=== PATIENT | female | born 1945 | race Caucasian/White ===

== ENCOUNTER 2017-12-12 13:08 | Outpatient (CLI) | payer MEDICARE ==
[2017-12-12 14:38] LABS: Anion Gap 13 mmol/L (10-20); BUN (Urea Nitrogen) 13 mg/dL (9.8-20.1); Calc. Creatinine Clearance 0 mL/min (70-130); Calcium 9.6 mg/dL (7.8-10.44); Carbon Dioxide 30 mmol/L (23-31); Chloride 103 mmol/L (98-107); Estimated GFR-MDRD 72; Glucose 113 mg/dL (83-110); Potassium 3.9 mmol/L (3.5-5.1); Sodium 142 mmol/L (136-145)
--- NOTE | 2017-12-14 00:50 | EKG ---
Test Reason : Blood Pressure : / mmHG Vent. Rate : 069 BPM Atrial Rate : 069 BPM P-R Int : 156 ms QRS Dur : 102 ms QT Int : 394 ms P-R-T Axes : 003 025 042 degrees QTc Int : 422 ms Sinus rhythm with occasional Premature ventricular complexes Low voltage QRS Incomplete right bundle branch block Cannot rule out Anterior infarct (cited on or before 06-MAY-2009) Abnormal ECG When compared with ECG of 06-MAY-2009 13:17, Premature ventricular complexes are now Present Confirmed by KRIS DARBY, SJeromy ([id number]) on 12/14/2017 12:50:12 AM Referred By: LUCIA Confirmed By:DR. Merly PONCE MD
== END 2017-12-12 13:09 | disposition home or self-care (01) ==
LOC: LABBT 13:08
PROVIDERS: ATTEND Neurological Surgery
DX: Z01.818 Encounter for other preprocedural examination (principal); M54.16 Radiculopathy, lumbar region
CPT/HCPCS: 80048; 93005; 93010

== ENCOUNTER 2017-12-18 08:55 | Day surgery (SDC) | payer MEDICARE ==
[2017-12-12 13:25] VITALS: BMI 34.9
--- NOTE | 2017-12-18 00:10 | HP ---
HISTORY OF PRESENT ILLNESS: Ms. Mckeon is a very pleasant 72-year-old woman who presents for evalu ation of 2 months' worth of severe right lower extremity L5 pains with associated numbness and tingli ng. She feels at this time that she is also weak in her right lower extremity, but does not have any true motor weakness discernible on exam. She has treated this with physical therapy and medications , which have not really helped much or made a difference for her and is ready to discuss other option s. She has an MRI at [facility] that reveals large superiorly migrated and sequestere d disk fragment to the right at L4-L5, which fits her symptoms well. PAST MEDICAL HISTORY: Significant for hypertension, obesity, essential tremor, insomnia. CURRENT MEDICATIONS: Losartan/hydrochlorothiazide, Caltrate, vitamin B12, and zolpidem. ALLERGIES: No known drug allergies. PAST SURGICAL HISTORY: Rotator cuff repair on the right, cholecystectomy, basal cell carcinoma resec tion on the right shoulder, and noncancerous nodule resection from the left breast. PHYSICAL EXAMINATION: NEUROLOGIC: The patient is alert and oriented x3. Gait is mildly antalgic. Lower extremity motor e xam is normal in all lower extremity motor movements. She has a negative straight leg raise bilatera lly. Reflexes are equal and present bilaterally at the patella. ASSESSMENT: Lumbar radiculopathy with herniated disk. PLAN: Discussed the case with Dr. Santana who met with the patient, reviewed imaging with me, and advo cated for a right L4 diskectomy. He explained to the patient the risks, benefits, and alternatives t o the procedure. The patient expressed understanding and would like to move forward with surgery as discussed. I do believe the patient is mentally competent and capable of making medical decisions fo r herself. We will move forward with surgery as planned. Levy Muro PA-C dictating for Dr. Santana.
[2017-12-18] MEDS ORDERED: CEFAZOLIN/Water 2 GM/20 ML SYRINGE ONE ×2 (09:03→14:52)
[2017-12-18] MEDS ORDERED: Thrombin 5000 UNITS/5 ML VIAL ONE (11:14)
[2017-12-18] MEDS ORDERED: Fentanyl 250 MCG/5 ML VIAL ONE (11:20)
[2017-12-18] MEDS ORDERED: Bupivacaine 0.25% HCL 30 ML VIAL ONE (11:51)
[2017-12-18] MEDS ORDERED: Bupivacaine PF 0.5% 30 ML VIAL ONE (11:51)
--- NOTE | 2017-12-18 13:02 | OP ---
DATE OF PROCEDURE: 12/18/2017 SURGEON: Jacob Santana M.D. COUNTER MAKER: None. INDICATION: Pain. DIAGNOSIS: Lumbar radiculopathy. PROCEDURE PERFORMED: Right L4 discectomy. ANESTHESIA: General. TECHNIQUE: The patient was brought into the operating room and placed under general anesthesia. She was flipped from a supine to a prone position on the operating room table. A linear incision was pl anned over the L4 segment. After prepping and draping and after appropriate operative pause, the inc ision was created. The soft tissues were swept right of midline. Self-retaining retractors were freddie robin in the wound for optimal exposure. After confirming the appropriate levels with C-arm fluoroscop y, hemilaminectomy was performed along the entire aspect of L4 on the right. There was a superiorly extruded disk fragment, which was identified just medially to the exiting L4 nerve root. This was ca refully removed until the lateral recesses and the exiting and descending nerve roots were well decom pressed. The wound was irrigated. Hemostasis was maintained throughout. The wound was then closed in anatomic layers and a pressure dressing was applied. There were no known procedural complications .
[2017-12-18] MEDS ORDERED: Acetaminophen/Codeine 30-300mg Tablet ONE (14:53)
[2017-12-18] MEDS ORDERED: Dexamethasone 20 MG/5 ML VIAL ONE (15:54)
[2017-12-18] MEDS ORDERED: Glycopyrrolate 0.2 MG/ML 5 ML SYRINGE ONE (15:54)
[2017-12-18] MEDS ORDERED: Ondansetron HCl/PF 4 MG/2 ML Vial ONE (15:54)
[2017-12-18] MEDS ORDERED: Propofol 200 MG/20 ML VIAL ONE (15:54)
[2017-12-18] MEDS ORDERED: Lidocaine 1% PF 5 ML VIAL ONE (15:54)
== END 2017-12-18 15:20 | disposition home or self-care (01) ==
LOC: SDC 08:55
PROVIDERS: ATTEND Neurological Surgery
PROC: 0SB20ZZ Excision of Lumbar Vertebral Disc, Open Approach (ICD-10-PCS; principal; 2017-12-18)
DX: M54.16 Radiculopathy, lumbar region (principal); M51.26 Other intervertebral disc displacement, lumbar region; I10 Essential (primary) hypertension
CPT/HCPCS: 76001; J0131; J1100; J2001; J2405; J2704; J3010; S0020

== ENCOUNTER 2018-07-09 09:52 | Outpatient (CLI) | payer MEDICARE ==
--- NOTE | 2018-07-09 12:49 | CT ---
CT OF THE LUMBAR SPINE: DATE: 07/09/18. COMPARISON: None. HISTORY: Low back pain radiating down the right leg, history of diskectomy. TECHNIQUE: Serial axial CT imaging is obtained at 3 mm intervals from the lower thoracic spine through the infer ior aspect of the sacrum without contrast. Coronal and sagittal reformatted imaging obtained. FINDINGS: Evaluation for central canal and/or neural foraminal stenosis is limited on routine CT. Cholecystectomy clips are present. Five lumbar-type vertebral bodies are present. There is anterolisthesis of L4 on L5 measuring 6 mm. T12-L1: There is no osseous cause of significant central canal or neural foraminal stenosis. Mild b ilateral facet hypertrophy. Mild anterior osteophyte formation. L1-2: There is bilateral facet hypertrophy. There is disk space narrowing and disk bulge noted with a left foraminal disk protrusion. Mild left lateral recess stenosis suspected. Moderate left neura l foraminal stenosis and mild right neural foraminal stenosis suspected. L2-3: There is disk space narrowing with vacuum disk formation and probable mild disk bulge with at least mild central canal stenosis. [id number] facet hypertrophy, left greater than right, with mild right and moderate left neural foraminal stenosis. L3-4: Bilateral facet hypertrophy, left greater than right. Disk space narrowing and vacuum disk fo rmation noted. Mild central canal stenosis. Moderate left and mild right neural foraminal stenosis suspected. L4-5: Disk space narrowing with vacuum disk formation and mild disk bulge. Unilateral pars defect o n the right. Moderate to severe right neural foraminal stenosis suspected. Probable mild central ca nal stenosis and left neural foraminal stenosis. Evidence of left-sided hemilaminectomy noted at L4. L5-S1: Mild disk space narrowing. Mild bilateral facet hypertrophy with mild bilateral neural des inal stenosis. No acute fracture or dislocation. No worrisome lytic or blastic bone lesion. IMPRESSION: 1. Evidence of prior right-sided hemilaminectomy at L4. Multilevel degenerative change as described above. Unilateral pars defect on the right at L4 noted. 2. Evaluation for central canal and/or neural foraminal stenosis could be best performed via CT myel ogram or lumbar spine MRI. POS: EMILY
--- NOTE | 2018-07-09 13:06 | CT ---
CERVICAL SPINE CT WITHOUT CONTRAST: DATE: 07/09/18. COMPARISON: None. HISTORY: Neck tightness, left greater than right, neck pain. TECHNIQUE: Serial axial CT imaging at 2 mm intervals from skull base through the lung apices without contrast. Coronal and sagittal reformatted imaging obtained. FINDINGS: Evaluation for central canal and/or neural foraminal stenosis is limited on routine CT. The cranioce rvical junction, the occipital condyles, the dens, the C1-2 articulation, and the cervicothoracic arnel ction demonstrate no acute findings. There is moderate degenerative change at the atlantoaxial inter space with interspace narrowing, subchondral sclerosis, and superior osteophyte formation. There is no anterolisthesis or retrolisthesis seen and there is no prevertebral soft tissue swelling. C2-3: No osseous cause of significant central canal or neural foraminal stenosis. C3-4: No osseous cause of significant central canal or neural foraminal stenosis. C4-5: There is right-sided facet and uncovertebral osteophyte formation with extension into the righ t neural foramen and moderate right neural foraminal stenosis. Mild uncovertebral osteophyte formati on on the left with mild extension into the left neural foramen. No significant central canal stenos is. C5-6: Bilateral uncovertebral osteophyte formation, left greater than right, with extension into kathie ateral neural foramina. Probable mild bilateral neural foraminal stenosis. No osseous cause of sign ificant central canal stenosis. C6-7: There is disk space narrowing. There is no osseous cause of significant central canal or neur al foraminal stenosis. C7-T1: No osseous cause of significant central canal or neural foraminal stenosis. No lytic or blastic bone lesion. No acute fracture or evidence of dislocation. Imaged lung apices are grossly unremarkable. There is incompletely assessed atherosclerotic calcification involving the distal common carotid myriam ry bilaterally. IMPRESSION: Multilevel degenerative change noted within the cervical spine. The most significant finding is neur al foraminal stenosis on the right at C4-5 and bilaterally at C5-6. Cervical spine CT myelogram or M RI could be most useful for evaluating underlying central canal and neural foraminal stenosis. POS: EMILY
== END 2018-07-09 09:53 | disposition home or self-care (01) ==
LOC: TBSIIMAG 09:52
PROVIDERS: ATTEND Neurological Surgery
DX: M54.2 Cervicalgia (principal); M47.26 Other spondylosis with radiculopathy, lumbar region; M47.892 Other spondylosis, cervical region; M99.81 Other biomechanical lesions of cervical region; Z98.890 Other specified postprocedural states
CPT/HCPCS: 72125; 72131

== ENCOUNTER 2018-09-10 13:11 | Outpatient (CLI) | payer MEDICARE ==
[2018-09-10 13:58] LABS: Anion Gap 14 mmol/L (10-20); BUN (Urea Nitrogen) 11 mg/dL (9.8-20.1); Calc. Creatinine Clearance 0 mL/min (70-130); Calcium 9.3 mg/dL (7.8-10.44); Carbon Dioxide 28 mmol/L (23-31); Chloride 106 mmol/L (98-107); Estimated GFR-MDRD 72; Glucose 153 mg/dL (83-110); Potassium 4.1 mmol/L (3.5-5.1); Sodium 144 mmol/L (136-145)
--- NOTE | 2018-09-11 09:41 | EKG ---
Test Reason : Blood Pressure : / mmHG Vent. Rate : 069 BPM Atrial Rate : 069 BPM P-R Int : 164 ms QRS Dur : 108 ms QT Int : 426 ms P-R-T Axes : 046 002 042 degrees QTc Int : 456 ms Normal sinus rhythm Low voltage QRS Incomplete right bundle branch block Cannot rule out Anterior infarct (cited on or before 06-MAY-2009) Abnormal ECG When compared with ECG of 12-DEC-2017 13:58, Premature ventricular complexes are no longer Present Confirmed by MENG MEDRANO ([id number]) on 09/11/2018 9:41:39 AM Referred By: LUCIA Confirmed By:MENG MEDRANO
== END 2018-09-10 13:12 | disposition home or self-care (01) ==
LOC: LABBT 13:11
PROVIDERS: ATTEND Neurological Surgery
DX: Z01.818 Encounter for other preprocedural examination (principal); M43.16 Spondylolisthesis, lumbar region
CPT/HCPCS: 80048; 93005; 93010

== ENCOUNTER 2018-09-19 08:20 | Day surgery (SDC) | payer MEDICARE ==
--- NOTE | 2018-09-19 07:07 | HP ---
HISTORY OF PRESENT ILLNESS: Ms. Mckeon is a 73-year-old woman known to us for a very distant lumba r diskectomy at the very beginning of this year who struggles with recurrent pains in the same distri bution which is a right L4 pattern. She has an MRI that shows some mild foraminal stenosis and then now a new CT scan from [facility] that reveals a unilateral right pars defect that could certainly explain the symptoms that she is having. She had injections at this level with Dr. Lanier repeatedly th at did help but her pain just continues to return. She also had . PAST MEDICAL HISTORY: Hypertension, obesity, essential tremor, insomnia. CURRENT MEDICATIONS: Losartan/hydrochlorothiazide, Caltrate, vitamin B12, zolpidem. ALLERGIES: No known drug allergies. PHYSICAL EXAMINATION: The patient is alert and oriented x3. Gait is mildly antalgic. Lower extremi ty motor strength is normal. ASSESSMENT: Lumbar pars defect and radiculopathy. PLAN: Dr. Santana met with the patient, did imaging and indicated for L4-L5 fusion. He explained the patient risks, benefits, and alternatives to the procedure. The patient expressed understanding this as discussed and is fully mentally capable of making medical decisions for herself.
[2018-09-19] MEDS ORDERED: CEFAZOLIN/Water 2 GM/20 ML SYRINGE ONE ×2 (09:20→13:56)
[2018-09-19] MEDS ORDERED: Bupivacaine HCl 0.5%/Epinephrine 1:200,000/PF 30 ml Vial ONE (09:23)
[2018-09-19] MEDS ORDERED: Fentanyl 100 MCG/2 ML VIAL ONE ×3 (09:33→12:21)
[2018-09-19] MEDS ORDERED: HYDROcodone/Acetaminophen 5/325 mg Tablet ONE (14:22)
[2018-09-19] MEDS ORDERED: PROPOFOL 200 MG/20 ML VIAL ONE (15:08)
[2018-09-19] MEDS ORDERED: Lidocaine 1% PF 5 ML VIAL ONE (15:08)
[2018-09-19] MEDS ORDERED: Labetalol HCl 100 MG/20 ML VIAL ONE (15:08)
[2018-09-19] MEDS ORDERED: Ondansetron HCl/PF 4 MG/2 ML Vial ONE (15:08)
[2018-09-19] MEDS ORDERED: Glycopyrrolate 0.2 MG/ML 5 ML SYRINGE ONE (15:08)
[2018-09-19] MEDS ORDERED: Dexamethasone 20 MG/5 ML VIAL ONE (15:08)
--- NOTE | 2018-09-20 12:44 | OP ---
DATE OF PROCEDURE: 09/19/2018 SURGEON: Jacob Santana M.D. CHILD CARE AIDE: Levy Muro PA-C. INDICATION: Pain. DIAGNOSES: Spondylosis with spondylolisthesis with lumbar radiculopathy. PROCEDURES: Right L4-5 facetectomy, right L4-5 posterolateral instrumented fusion, placement of allograft, placement of autograft, reoperation. ANESTHESIA: General. TECHNIQUE: The patient was brought into the operating room and placed under general anesthesia. She was flipped from a supine to prone position on the operating room table. A linear incision was planned to the prior incisional site at L4-5. After prepping and draping and after an appropriate operative pause, the incision was created. The soft tissues were swept away from midline. A self-retaining retractor was placed in the wound for optimal exposure. After confirming the appropriate levels with C-arm fluoroscopy, a high-speed cutting drill bit as well as 2 and 3 mm Kerrisons were used to perform an additional decompression at L4-5 on the right side. This incorporated removing most of the facet joint at L4-L5 until the exiting L4 and descending L5 nerve roots were decompressed. With the aid of C-arm fluoroscopy , pedicle screws were placed at L4 and L5. Allograft and autograft material was then placed within the lateral confines of the instrumentation construct. The wound was irrigated. Hemostasis was maintained throughout. The wound was then closed in anatomic layers and a pressure dressing was applied. There were no known procedural complications. [facility]
== END 2018-09-19 15:00 | disposition home or self-care (01) ==
LOC: SDC 08:20
PROVIDERS: ATTEND Neurological Surgery
PROC: 0SG0071 Fusion of Lumbar Vertebral Joint with Autologous Tissue Substitute, Posterior Approach, Posterior Column, Open Approach (ICD-10-PCS; principal; 2018-09-19)
DX: M43.16 Spondylolisthesis, lumbar region (principal); M47.26 Other spondylosis with radiculopathy, lumbar region
CPT/HCPCS: 20931; 20936; 22612; 22840; 76001; 96374; C1713 ×2; 96375; 96376; J0670; J1100; J2001; J2405; J2704; J3010

== ENCOUNTER 2018-11-08 09:55 | Outpatient (CLI) | payer MEDICARE ==
--- NOTE | 2018-11-08 11:32 | RAD ---
LUMBAR SPINE TWO VIEWS: History: Status post fusion surgery. FINDINGS: There are five lumbar type vertebral bodies. Unilateral right sided transpedicular screw at L4 and L5 . No perihardware lucency. No spondylolithsis or spondylolysis. Mild loss of disc space height throug hout the lumbar spine. IMPRESSION: Uncomplicated lumbar fusion at L4-5. POS: BEL
== END 2018-11-08 09:56 | disposition home or self-care (01) ==
LOC: TBSIIMAG 09:55
PROVIDERS: ATTEND Neurological Surgery
DX: M54.14 Radiculopathy, thoracic region (principal); Z98.1 Arthrodesis status
CPT/HCPCS: 72100

== ENCOUNTER 2021-08-13 09:49 | Outpatient (CLI) | payer MEDICARE ==
[2021-08-13 11:01] LABS: #Eosinphils 0.6 10x3/uL (0.0-0.5); #Monocytes 0.5 10x3/uL (0.0-1.1); #Neutrophils 4.4 10x3/uL (1.5-8.4); %Basophils 0.6 % (0.0-2.0); %Eosinophils 7.9 % (0.0-6.0); %Lymphocytes 23.3 % (18.0-47.0); %Monocytes 7.3 % (0.0-10.0); %Neutrophils 60.6 % (40.0-75.0); Hemoglobin 14.2 g/dL (12.0-15.5); Mean Corpuscular HGB CONC 32.2 g/dL (32.0-36.0); Mean Corpuscular Hemoglobin 30.1 pg (27.0-33.0); Mean Corpuscular Volume 93.6 fl (81.6-98.3); Mean Platelet Volume 9.8 fl (7.4-10.4); Platelet Count 281 10x3/uL (150-450); RBC Distribution Width 12.7 % (11.5-14.5); Red Blood Cell (RBC) Count 4.71 10x6/uL (3.90-5.03); White Blood Cell (WBC) Count 7.2 10x3/uL (3.5-10.5)
[2021-08-13 11:24] LABS: Anion Gap 14 mmol/L (10-20); BUN (Urea Nitrogen) 13 mg/dL (9.8-20.1); Calc. Creatinine Clearance 0 mL/min (70-130); Calcium 10.4 mg/dL (7.8-10.44); Carbon Dioxide 29 mmol/L (23-31); Chloride 107 mmol/L (98-107); Glucose 93 mg/dL (83-110); Potassium 4.6 mmol/L (3.5-5.1); Sodium 145 mmol/L (136-145)
[2021-08-14 13:29] LABS: SARS-CoV-2 PCR by NAA Not Detected (NotDetected)
== END 2021-08-13 09:50 | disposition home or self-care (01) ==
LOC: LABBT 09:49
PROVIDERS: ATTEND Orthopaedic Surgery
DX: Z01.818 Encounter for other preprocedural examination (principal); M96.89 Other intraoperative and postprocedural complications and disorders of the musculoskeletal system; Z20.822 Contact with and (suspected) exposure to COVID-19
CPT/HCPCS: 71046; 80048; 85025; U0003; U0005; 93005; 93010

== ENCOUNTER 2021-08-18 05:43 | Day surgery (SDC) | payer MEDICARE ==
[2021-08-16 14:01] VITALS: BMI 34.3
[2021-08-18] MEDS ORDERED: Vancomycin HCl 1.5 GM in Sodium Chloride 0.9% 250 ML 300 ML IVPB SCH (06:15)
[2021-08-18] MEDS ORDERED: Fentanyl 100 MCG/2 ML VIAL ONE ×3 (06:48→08:41)
[2021-08-18] MEDS ORDERED: Midazolam HCl 2 mg/2 ml Vial ONE (06:48)
[2021-08-18] MEDS ORDERED: Lidocaine 1% PF 5 ML VIAL ONE (07:12)
[2021-08-18] MEDS ORDERED: ePHEDrine 50 MG/ML VIAL ONE ×2 (07:12)
[2021-08-18] MEDS ORDERED: PHENYLEPHRINE-NS 100 MCG/ML 10 ML SYRINGE ONE (07:12)
[2021-08-18] MEDS ORDERED: Dexamethasone 20 MG/5 ML VIAL ONE (07:12)
[2021-08-18] MEDS ORDERED: Ropivacaine 0.5% HCl/PF (150 MG/30 ML VIAL) ONE (07:12)
[2021-08-18] MEDS ORDERED: PROPOFOL 200 MG/20 ML VIAL ONE (07:12)
[2021-08-18] MEDS ORDERED: Glycopyrrolate 0.2 MG/ML 5 ML SYRINGE ONE (07:12)
[2021-08-18] MEDS ORDERED: Rocuronium Bromide 10 MG/ML (10ML VIAL) ONE (07:12)
[2021-08-18] MEDS ORDERED: diphenhydrAMINE 50 MG/ML VIAL ONE (07:12)
[2021-08-18] MEDS ORDERED: Ondansetron PF 4 MG/2 ML Vial ONE (07:12)
[2021-08-18] MEDS ORDERED: Ketorolac Tromethamine 30 MG/ML VIAL IVP PRN (08:15)
[2021-08-18] MEDS ORDERED: HYDROcodone/Acetaminophen 5/325 mg Tablet PO PRN ×2 (08:15)
[2021-08-18] MEDS ORDERED: Ropivacaine 0.2% 550 ML 550 ML NERVE BLCK SCH (08:15)
[2021-08-18] MEDS ORDERED: Zolpidem Tartrate 5 MG TAB PO PRN (08:15)
[2021-08-18] MEDS ORDERED: traMADol HCl 50 MG TAB PO PRN ×2 (08:15)
[2021-08-18] MEDS ORDERED: Ondansetron PF 4 MG/2 ML Vial IVP PRN (08:15)
[2021-08-18] MEDS ORDERED: Promethazine HCl 25 MG/ML VIAL IM PRN (08:15)
[2021-08-18] MEDS ORDERED: HYDROcodone/Acetaminophen 5/325 mg Tablet ONE (11:32)
== END 2021-08-18 12:20 | disposition home or self-care (01) ==
LOC: SDC 05:43
PROVIDERS: ATTEND Orthopaedic Surgery
PROC: 0LQ10ZZ Repair Right Shoulder Tendon, Open Approach (ICD-10-PCS; principal; 2021-08-18)
PROC: 0RNJ0ZZ Release Right Shoulder Joint, Open Approach (ICD-10-PCS; 2021-08-18)
PROC: 0RCJ0ZZ Extirpation of Matter from Right Shoulder Joint, Open Approach (ICD-10-PCS; 2021-08-18)
PROC: 3E0T3BZ Introduction of Anesthetic Agent into Peripheral Nerves and Plexi, Percutaneous Approach (ICD-10-PCS; 2021-08-18)
DX: M75.101 Unspecified rotator cuff tear or rupture of right shoulder, not specified as traumatic (principal); M25.811 Other specified joint disorders, right shoulder; T84.428A Displacement of other internal orthopedic devices, implants and grafts, initial encounter; M19.111 Post-traumatic osteoarthritis, right shoulder; S43.401A Unspecified sprain of right shoulder joint, initial encounter; I10 Essential (primary) hypertension; R25.1 Tremor, unspecified; Z79.899 Other long term (current) drug therapy; Z88.8 Allergy status to other drugs, medicaments and biological substances; Z98.1 Arthrodesis status
CPT/HCPCS: 23044; 23130; 23412; 64416; A4306; J0690; J1100; J1200; J2250; J2405; J2704; J2795; J3010; J3370; J3490; J7050